=== PATIENT | male | born 1970 | race Caucasian/White ===

== ENCOUNTER 2022-10-07 07:28 | Day surgery (SDC) | payer BC, OTHER ==
--- NOTE | 2022-10-06 12:50 | HP ---
DATE OF SURGERY: 10/07/2022 HISTORY OF PRESENT ILLNESS: The patient is a 52-year-old male presents for endoscopy. No colonoscopy to date. No issues. No family history of colon cancer. PAST MEDICAL HISTORY: Hypertension. PAST SURGICAL HISTORY: None. ALLERGIES: NKDA. MEDICATIONS: Losartan. FAMILY HISTORY: None. SOCIAL HISTORY: None. REVIEW OF SYSTEMS: CONSTITUTIONAL: Denies fever or chills. CHEST: Denies shortness of breath. CVS: Denies chest pain. ABDOMEN: Denies abdominal pain. PHYSICAL EXAMINATION: GENERAL: No acute distress. CHEST: Nonlabored. No shortness of breath. CVS: Regular rate and rhythm. ABDOMEN: Soft. IMPRESSION: Screening. PLAN: Colonoscopy with Dr. Richard Marshall. As dictated by Scarlett Nguyen NP.
[2022-10-07] MEDS ORDERED: GlucaGen 1 MG IM ONE (07:29)
[2022-10-07] MEDS ORDERED: Lactated Ringers 1,000 ML IV SCH (07:30)
[2022-10-07] MEDS ORDERED: Lactated Ringers 1,000 ML IV ONE (07:37)
[2022-10-07] MEDS ORDERED: Versed 2 MG/2 ML Injection ONE (09:40)
[2022-10-07] MEDS ORDERED: DIPRIVAN 200 MG/20 ML IV ONE ×2 (09:41→09:50)
[2022-10-07] MEDS ORDERED: SUBLIMAZE 100 MCG/2 ML ONE (09:49)
[2022-10-07 10:41] VITALS: PULSE 72; O2SAT 95
[2022-10-07 10:52] VITALS: BP 135/84
--- NOTE | 2022-10-07 14:05 | OP ---
SURGERY DATE: 10/07/2022 SURGERY TIME: 939 PREOPERATIVE DIAGNOSIS: 1. SCREENING. POSTOPERATIVE DIAGNOSIS: 1. MODERATE INTERNAL HEMORRHOIDS. PROCEDURE: 1. Colonoscopy complete to cecum. SURGEON: Richard Marshall M.D. [employer] WORKER: Medical Student, III. ANESTHESIA: MAC. COMPLICATIONS: None. CONDITION: Stable. INDICATION: Patient presents for screening. OPERATIVE PROCEDURE: Taken to endoscopy. Left lateral decubitus position. Anal digital examination/prostate exam satisfactory. The scope introduced. The scope advanced to the cecum. The bowel prep was excellent. There was no residual material. The colon condition was excellent. There was just the right tone. Just a minimal amount of spasm, but not much. A little Glucagon was given. Scope advanced to the cecum. Ileocecal valve and appendiceal orifice were normal. Base of the cecum normal. Ascending, hepatic, transverse, splenic, descending, sigmoid, rectum. There were moderate internal hemorrhoids. The patient tolerated the procedure satisfactory. His BP had been a little high during the procedure. His was instructed to talk with his family doctor or provider about this.
== END 2022-10-07 10:54 | disposition home or self-care (01) ==
LOC: SDC 07:28
PROVIDERS: ATTEND Surgery
DX: Z12.11 Encounter for screening for malignant neoplasm of colon (principal); K64.8 Other hemorrhoids
CPT/HCPCS: J1610; J2250; J2704; J3010